=== PATIENT | female | born 1940 | race Caucasian/White ===

== ENCOUNTER → 2018-01-25 | Outpatient (CLI) | payer MEDICARE, BC ==
[~2018-01-25] MED LIST: ADULT LOW DOSE81 MG PO; DIOVAN; DIOVAN160 MG PO; DYAZIDE 37.5-21 EACH PO; FOLIC ACID; PAXIL; VITAMIN D
--- NOTE | 2018-01-25 16:48 | CARDNUC ---
[place] [address] CARDIAC NUCLEAR IMAGING REPORT Name: AICHA JAIN Room: [facility]#: [id number] Admission: 01/25/18 Attend Phys: Jocelyn DONALDSON Segura Discharge: Date of : 36 Date of Service: 01/25/18 1648 Report #: [id number] THIS REPORT FOR: //name// APPROVED REPORT Study performed: 01/25/2018 08:45:00 Exam: Nuclear Stress Test Indication: Chest pain Patient Location: Out-Patient Stress Tech: [facility] Stress Nurse: Adriana Borjas RN NM Tech:FROYLAN Wyatt Ht: 5 ft 2 in Wt: 149 lbs BSA: 1.69 m2 BMI: 27.24 Medical History Medical History: Diabetes, HTN, Hyperlipidemia Medications: valsartan, atorvastatin, hctz Allergies: sulfa Cardiac Risk Factors: Age, DM, HTN, Hyperlipidemia Exercise History: Sedentary Stress Test Details Stress Test: Pharmacologic stress testing performed using 0.4 mg of regadenoson per 5 mL given IV over 10 seconds. Reason for pharmacologic stress test: physical limitation. Reversal agent Aminophyline 50 mg, given intravenously for nausea/vomiting. HR Resting HR: 100 bpm Max Heart Rate (APMHR): 141 bpm Max HR Achieved: 130 bpm Target HR (85% APMHR): 119 bpm % of APMHR: 92 Recovery HR: 118 bpm BP Resting BP: 206/115 mmHg Max BP: 131/82 mmHg ECG Resting ECG: Sinus Rhythm, normal EKG Stress ECG: Sinus Tachycardia ST Change: None [address] [address] CARDIAC NUCLEAR IMAGING REPORT Name: AICHA JAIN Kian Room: [facility]#: [id number] Admission: 01/25/18 Attend Phys: Jocelyn DONALDSON Segura Discharge: Date of : 36 Date of Service: 01/25/18 1648 Report #: [id number] Arrhythmia: None Recovery ECG: Sinus Rhythm, normal EKG Recovery ST Change: None Recovery Arrhythmia: None Clinical Reason for Termination: Completed protocol Stress Symptoms: Nausea, Emesis Exercise duration: 0 min sec Exercise capacity: 1.0 METs The patient had nausea and vomiting felt to be due to medication affect. There was no chest pain or significant shortness of breath. Nurse Comments Patient experienced nausea/vomiting post lexiscan injection, 50mg aminophylline given IV at 1055, patient states feeling much better at 1102. Stress ECG Conclusion The baseline 12-lead electrocardiogram showed sinus rhythm with no significant ST or T wave abnormality. The EKG's obtained during and post stress show sinus rhythm with no significant ST or abnormality. There were no stress-induced arrhythmias. NM EXAM: Myocardial Perfusion REST/STRESS Imaging Protocol: Rest Tc-99m/Stress Tc-99m 1 day Resting Data Rest SPECT myocardial perfusion imaging was performed in supine position 30 minutes following the intravenous injection of 11.4 mCi of Tc-99m Sestamibi. Time of rest injection: 0905 Time of rest imagin The images were gated to evaluate regional wall motion and calculate left ventricular ejection fraction. Administration Route: IV Pharmacologic Stress Pharmacologic stress test was performed by injecting Regadenoson 0.4 mg IV push followed by the intravenous injection of 35.2 mCi of Tc-99m Sestamibi. Time of stress injection: 1045 Time of stress imagin Administration Route: IV Gated Stress SPECT was performed 40 [place] [address] CARDIAC NUCLEAR IMAGING REPORT Name: AICHA JAIN Room: [facility]#: [id number] Admission: 01/25/18 Attend Phys: Jocelyn DONALDSON Segura Discharge: Date of : 36 Date of Service: 01/25/18 1648 Report #: [id number] injection. The images were gated to evaluate regional wall motion and calculate left ventricular ejection fraction. Prone imaging was performed. Study Quality Study: Fair Artifact: Mild Breast artifact Study Data At rest, the left ventricular ejection fraction was 61%.. Post stress, the left ventricular ejection was 55%.. TID = 0.90. Perfusion Perfusion images obtained in the supine position show moderate photopenia in the anterior wall consistent with breast attenuation artifact. Post stress prone imaging shows uniform uptake of the radioisotope throughout the myocardium without defect. Wall Motion Normal left ventricular wall motion. Nuclear Conclusion ECG Findings: negative for ischemia Clinical Findings: negative for ischemia Nuclear Findings: negative for ischemia Exercise Capacity: not assessed Left Ventricular Function: normal Risk Study: low Myocardial perfusion images show no defects to suggest infarct or ischemia. Left ventricular systolic function appears globally normal. This is a low risk study. <Conclusion> The baseline 12-lead electrocardiogram showed sinus rhythm with no significant ST or T wave abnormality. The EKG's obtained during and post stress show sinus rhythm with no significant ST or abnormality. There were no stress-induced arrhythmias. <ELECTRONICALLY SIGNED> By: Blair Rudolph MD, FACC 01/25/18 1648 1648 1648 Blair Rudolph MD, FACC /INF
== END ==
LOC: M.NUC 01-17 10:29
DX: R07.9 Chest pain, unspecified (principal)

== ENCOUNTER → 2018-06-13 | Outpatient (CLI) | payer MEDICARE, BC | LOC: M.RAD 08:35 | DX: Z12.31 Encounter for screening mammogram for malignant neoplasm of breast (principal); I10 Essential (primary) hypertension; F32.9 Major depressive disorder, single episode, unspecified; Z88.2 Allergy status to sulfonamides ==

== ENCOUNTER → 2018-12-07 | Outpatient (CLI) | payer MEDICARE, BC | LOC: M.ULTRA 11-23 07:36 | DX: M51.37 Other intervertebral disc degeneration, lumbosacral region (principal); I70.213 Atherosclerosis of native arteries of extremities with intermittent claudication, bilateral legs; M51.27 Other intervertebral disc displacement, lumbosacral region; M47.817 Spondylosis without myelopathy or radiculopathy, lumbosacral region ==

== ENCOUNTER → 2019-06-25 | Outpatient (CLI) | payer MEDICARE, BC | LOC: M.RAD 07:32 | DX: Z12.31 Encounter for screening mammogram for malignant neoplasm of breast (principal) ==